=== PATIENT | female | born 1995 | race Caucasian/White ===

== ENCOUNTER 2021-06-27 21:11 | Inpatient (IN) | payer OTHER ==
[~2021-06-27] VITALS: Ht 167.6 cm; Wt 83.0 kg
[~2021-06-27 21:11] MED LIST: FOLIC ACID1 MG PO; IRON325 MG PO; PRENATAL TABLE1 EAC1 PO
== END 2021-07-02 09:55 | disposition home or self-care (01) | DRG 805 ==
LOC: OBS/DEL 21:11 → LDR 06-28 10:46 → OB/GYN 06-28 10:46
PROVIDERS: ADMIT Specialist; ATTEND Specialist
PROC: 4A1HXCZ Monitoring of Products of Conception, Cardiac Rate, External Approach (ICD-10-PCS; 2021-06-28)
PROC: BY4CZZZ Ultrasonography of Second Trimester, Single Fetus (ICD-10-PCS; 2021-06-30)
PROC: 10E0XZZ Delivery of Products of Conception, External Approach (ICD-10-PCS; principal; 2021-07-01)
PROC: 3E0DXGC Introduction of Other Therapeutic Substance into Mouth and Pharynx, External Approach (ICD-10-PCS; 2021-07-01)
PROC: 3E0P7VZ Introduction of Hormone into Female Reproductive, Via Natural or Artificial Opening (ICD-10-PCS; 2021-07-01)
DX: O36.4XX0 Maternal care for intrauterine death, not applicable or unspecified (principal); O60.12X0 Preterm labor second trimester with preterm delivery second trimester, not applicable or unspecified; Z37.1 Single stillbirth; O41.1220 Chorioamnionitis, second trimester, not applicable or unspecified; O42.012 Preterm premature rupture of membranes, onset of labor within 24 hours of rupture, second trimester; O35.0XX0 Maternal care for (suspected) central nervous system malformation in fetus, not applicable or unspecified; O35.3XX0 Maternal care for (suspected) damage to fetus from viral disease in mother, not applicable or unspecified; Z20.822 Contact with and (suspected) exposure to COVID-19; Z3A.22 22 weeks gestation of pregnancy; O34.211 Maternal care for low transverse scar from previous cesarean delivery

== ENCOUNTER 2021-12-18 09:43 | Outpatient (CLI) | payer OTHER | END 2021-12-18 11:33 | disposition home or self-care (01) | LOC: PRENATAL 09:43 | PROVIDERS: ATTEND Obstetrics & Gynecology Maternal & Fetal Medicine | DX: O36.80X0 Pregnancy with inconclusive fetal viability, not applicable or unspecified (principal); Z36.0 Encounter for antenatal screening for chromosomal anomalies; O34.219 Maternal care for unspecified type scar from previous cesarean delivery; O14.90 Unspecified pre-eclampsia, unspecified trimester; Z3A.13 13 weeks gestation of pregnancy ==

== ENCOUNTER 2022-02-05 15:48 | Outpatient (CLI) | payer OTHER | END 2022-02-05 16:57 | disposition home or self-care (01) | LOC: PRENATAL 15:48 | PROVIDERS: ATTEND Obstetrics & Gynecology Maternal & Fetal Medicine | DX: O35.0XX0 Maternal care for (suspected) central nervous system malformation in fetus, not applicable or unspecified (principal); O35.3XX0 Maternal care for (suspected) damage to fetus from viral disease in mother, not applicable or unspecified; O34.219 Maternal care for unspecified type scar from previous cesarean delivery; O14.90 Unspecified pre-eclampsia, unspecified trimester; O42.90 Premature rupture of membranes, unspecified as to length of time between rupture and onset of labor, unspecified weeks of gestation; Z14.8 Genetic carrier of other disease; Z3A.20 20 weeks gestation of pregnancy ==

== ENCOUNTER 2022-04-25 14:07 | Outpatient (CLI) | payer OTHER | END 2022-04-26 08:00 | disposition home or self-care (01) | LOC: OBS/DEL 14:07 → PRENATAL 04-30 15:30 | PROVIDERS: ATTEND Obstetrics & Gynecology | DX: O26.893 Other specified pregnancy related conditions, third trimester (principal); Z3A.31 31 weeks gestation of pregnancy; N93.0 Postcoital and contact bleeding ==

== ENCOUNTER 2022-04-30 15:08 | Outpatient (CLI) | payer OTHER | END 2022-04-30 15:42 | disposition home or self-care (01) | LOC: PRENATAL 15:08 | PROVIDERS: ATTEND Obstetrics & Gynecology Maternal & Fetal Medicine | DX: O26.849 Uterine size-date discrepancy, unspecified trimester (principal); O36.8991 Maternal care for other specified fetal problems, unspecified trimester, fetus 1; O14.90 Unspecified pre-eclampsia, unspecified trimester; Z3A.32 32 weeks gestation of pregnancy ==

== ENCOUNTER 2022-06-10 10:30 | Inpatient (IN) | payer OTHER ==
[~2022-06-10] VITALS: Ht 167.6 cm; Wt 3.2 kg
[2022-06-10] MEDS ORDERED: CHILDREN'S ASPI81 MG PO (13:24)
[2022-06-15] MEDS ORDERED: ASA-BUTALB-CAF1 EACH PO (16:44)
[2022-06-15] MEDS ORDERED: PRENATABS RX T1 EACH PO (16:44)
== END 2022-06-17 14:21 | disposition home or self-care (01) | DRG 785 ==
LOC: OB/GYN 06-15 10:30 → LDR 06-15 15:35 → O/R 06-15 17:11 → OB/GYN 06-15 20:05
PROVIDERS: ADMIT Obstetrics & Gynecology; ATTEND Obstetrics & Gynecology
PROC: 4A1HXCZ Monitoring of Products of Conception, Cardiac Rate, External Approach (ICD-10-PCS; 2022-06-15)
PROC: 0UB70ZZ Excision of Bilateral Fallopian Tubes, Open Approach (ICD-10-PCS; 2022-06-15)
PROC: 10D00Z1 Extraction of Products of Conception, Low, Open Approach (ICD-10-PCS; principal; 2022-06-15 17:00)
DX: O34.211 Maternal care for low transverse scar from previous cesarean delivery (principal); Z3A.39 39 weeks gestation of pregnancy; Z30.2 Encounter for sterilization; Z37.0 Single live birth; Z20.822 Contact with and (suspected) exposure to COVID-19

== ENCOUNTER 2023-01-04 16:14 | Emergency (ER) | payer OTHER ==
[~2023-01-04] VITALS: Ht 162.6 cm; Wt 91.6 kg
[~2023-01-04 16:14] MED LIST changes: +ASA-BUTALB-CAF1 EACH PO; +CHILDREN'S ASPI81 MG PO; +PRENATABS RX T1 EACH PO
== END 2023-01-04 18:24 | disposition home or self-care (01) ==
LOC: ER 16:14
DX: J03.90 Acute tonsillitis, unspecified (principal)

== ENCOUNTER → 2023-01-08 | Emergency (ER) | payer OTHER | END | disposition left against medical advice (07) | LOC: EMR PED 12:25 | DX: Z53.21 Procedure and treatment not carried out due to patient leaving prior to being seen by health care provider (principal) ==

== ENCOUNTER 2023-04-25 08:21 | Emergency (ER) | payer OTHER ==
[~2023-04-25] VITALS: Ht 167.6 cm; Wt 81.6 kg
[2023-04-25] MEDS ORDERED: FAMCICLOVIR500 MG PO (09:37)
[2023-04-25] MEDS ORDERED: ACYCLOVIR15 GM TD (09:37)
== END 2023-04-25 10:58 | disposition home or self-care (01) ==
LOC: ER 08:22
DX: B02.9 Zoster without complications (principal)

== ENCOUNTER 2023-06-03 10:31 | Emergency (ER) | payer OTHER ==
[~2023-06-03] VITALS: Ht 170.2 cm; Wt 83.9 kg
[~2023-06-03 10:31] MED LIST changes: +ACYCLOVIR15 GM TD; +FAMCICLOVIR500 MG PO
[2023-06-03 11:54] LABS: HEMATOCRIT 38.3 % (36.0-45.00); HEMOGLOBIN 12.4 g/dL (12.0-15.00); MEAN CELL VOLUME 76.5 fL (80.00-100.00); MEAN CORPUSCULAR HEMOGLOBIN 24.7 pg (27.00-32.0); MEAN CORPUSCULAR HGB CONC 32.3 g/dl (32.0-36.0); PLATELET COUNT 339 K/uL (150-450); RED BLOOD COUNT 5.01 M/uL (4.00-6.00); RED CELL DISTRIBUTION WIDTH 14.7 % (11.5-14.5)
[2023-06-03] MEDS ORDERED: ZITHROMAX500 MG PO (14:21)
== END 2023-06-03 14:32 | disposition home or self-care (01) ==
LOC: ER 10:33
PROVIDERS: Emergency Medicine
DX: J03.90 Acute tonsillitis, unspecified (principal); Z20.822 Contact with and (suspected) exposure to COVID-19

== ENCOUNTER 2023-07-05 12:58 | Emergency (ER) | payer OTHER ==
[~2023-07-05] VITALS: Ht 167.6 cm; Wt 81.6 kg
[~2023-07-05 12:58] MED LIST changes: +ZITHROMAX500 MG PO
[2023-07-05 15:07] LABS: HEMATOCRIT 35.9 % (36.0-45.00); HEMOGLOBIN 11.8 g/dL (12.0-15.00); MEAN CELL VOLUME 77.7 fL (80.00-100.00); MEAN CORPUSCULAR HEMOGLOBIN 25.4 pg (27.00-32.0); MEAN CORPUSCULAR HGB CONC 32.8 g/dl (32.0-36.0); PLATELET COUNT 393 K/uL (150-450); RED BLOOD COUNT 4.63 M/uL (4.00-6.00); RED CELL DISTRIBUTION WIDTH 14.8 % (11.5-14.5)
== END 2023-07-05 16:50 | disposition home or self-care (01) ==
LOC: ER 12:59
PROVIDERS: Emergency Medicine
DX: B34.9 Viral infection, unspecified (principal); Z20.822 Contact with and (suspected) exposure to COVID-19

== ENCOUNTER 2024-01-23 18:14 | Emergency (ER) | payer OTHER ==
[~2024-01-23] VITALS: Ht 167.6 cm; Wt 81.6 kg
[2024-01-23] MEDS ORDERED: CEFTRIAXONE SODIUM 2,000 MG VIAL IM ONE (19:00)
[2024-01-23] MEDS ORDERED: ORPHENADRINE CITRATE 30 MG/ML AMPUL IM ONE (19:00)
[2024-01-23] MEDS ORDERED: KETOROLAC TROMETHAMINE 60 MG VIAL IM ONE ×2 (19:00→19:53)
[2024-01-23] MEDS ORDERED: CEFTRIAXONE SODIUM 2,000 MG VIAL ONE (19:53)
[2024-01-23] MEDS ORDERED: ORPHENADRINE CITRATE 30 MG/ML AMPUL ONE (19:53)
[2024-01-23 20:20] LABS: HEMATOCRIT 36.6 % (36.0-45.00); MEAN CELL VOLUME 78.6 fL (80.00-100.00); MEAN CORPUSCULAR HEMOGLOBIN 25.8 pg (27.00-32.0); MEAN CORPUSCULAR HGB CONC 32.8 g/dl (32.0-36.0); PLATELET COUNT 331 K/uL (150-450); RED BLOOD COUNT 4.66 M/uL (4.00-6.00)
[2024-01-23 20:58] LABS: URINE APPEARANCE Cloudy; URINE BILIRRUBIN Negative (NEGATIVE); URINE BLOOD Negative; URINE COLOR Yellow; URINE GLUCOSE Negative (NEGATIVE); URINE KETONE Negative (NEGATIVE); URINE LEUKOCYTE Small; URINE NITRATE Negative; URINE PROTEIN Negative (NEGATIVE)
[2024-01-23 21:03] LABS: URINE BACTERIA 613.5 uL (0.0-1933); URINE EPITHELIAL CELLS 119.9 uL (0.0-38.8); URINE RBC 6.8 uL (0.0-20.8); URINE WBC 41.2 uL (0.0-23.2)
[2024-01-23] MEDS ORDERED: KETO10TA2 PO (21:13)
[2024-01-23] MEDS ORDERED: PEPCID AC20 MG PO (21:13)
[2024-01-23] MEDS ORDERED: NORFLEX100MG PO (21:13)
== END 2024-01-23 21:26 | disposition home or self-care (01) ==
LOC: ER 18:16
PROVIDERS: General Practice
DX: M51.26 Other intervertebral disc displacement, lumbar region (principal); J02.9 Acute pharyngitis, unspecified; R09.81 Nasal congestion; Z20.822 Contact with and (suspected) exposure to COVID-19

== ENCOUNTER 2024-03-27 09:52 | Emergency (ER) | payer OTHER ==
[~2024-03-27] VITALS: Ht 167.6 cm; Wt 81.6 kg
[~2024-03-27 09:52] MED LIST changes: +KETO10TA2 PO; +NORFLEX100MG PO; +PEPCID AC20 MG PO
[2024-03-27 12:09] LABS: HEMATOCRIT 38.4 % (36.0-45.00); HEMOGLOBIN 12.6 g/dL (12.0-15.00); MEAN CORPUSCULAR HEMOGLOBIN 25.6 pg (27.00-32.0); MEAN CORPUSCULAR HGB CONC 32.8 g/dl (32.0-36.0); PLATELET COUNT 335 K/uL (150-450); RED BLOOD COUNT 4.93 M/uL (4.00-6.00); RED CELL DISTRIBUTION WIDTH 14.8 % (11.5-14.5)
[2024-03-27 12:30] LABS: CALCIUM 9.2 mg/dL (8.5-10.1); CREATININE SERUM 0.56 mg/dL (0.55-1.02); GFR 126.26; POTASSIUM 4.79 mEq/L (3.5-5.1)
== END 2024-03-27 13:47 | disposition home or self-care (01) ==
LOC: ER 09:54
PROVIDERS: General Practice
DX: R53.81 Other malaise (principal); R00.2 Palpitations

== ENCOUNTER 2024-06-28 09:07 | Emergency (ER) | payer OTHER ==
[~2024-06-28] VITALS: Ht 160 cm; Wt 81.6 kg
[2024-06-28 11:19] LABS: HEMATOCRIT 38.6 % (36.0-45.00); HEMOGLOBIN 12.8 g/dL (12.0-15.00); MEAN CELL VOLUME 77.2 fL (80.00-100.00); MEAN CORPUSCULAR HEMOGLOBIN 25.5 pg (27.00-32.0); PLATELET COUNT 355 K/uL (150-450); RED BLOOD COUNT 5.01 M/uL (4.00-6.00); RED CELL DISTRIBUTION WIDTH 14.8 % (11.5-14.5)
== END 2024-06-28 13:01 | disposition home or self-care (01) ==
LOC: ER 09:09
PROVIDERS: General Practice
DX: B34.9 Viral infection, unspecified (principal); J02.8 Acute pharyngitis due to other specified organisms; Z20.822 Contact with and (suspected) exposure to COVID-19

== ENCOUNTER 2024-09-19 09:29 | Emergency (ER) | payer OTHER ==
[~2024-09-19] VITALS: Ht 167.6 cm; Wt 86.2 kg
[2024-09-19] MEDS ORDERED: RINGERS SOLUTION,LACTATED 1,000 ML IV STA (10:40)
[2024-09-19] MEDS ORDERED: FAMOtidine 10 MG/ML (4ML VIAL) IV STA (10:41)
[2024-09-19] MEDS ORDERED: ONDANSETRON HCL 2 MG/ML VIAL ONE (10:43)
[2024-09-19] MEDS ORDERED: METOCLOPRAMIDE HCL 5 MG/ML VIAL ONE (10:43)
[2024-09-19] MEDS ORDERED: FAMOTIDINE/PF 20 MG/2 ML VIAL ONE (10:44)
[2024-09-19] MEDS ORDERED: METOCLOPRAMIDE HCL 10 MG in DEXTROSE 5 % IN WATER 50 ML IV ONE (10:45)
[2024-09-19] MEDS ORDERED: ONDANSETRON HCL 2 MG/ML VIAL IV ONE (10:45)
[2024-09-19 11:16] LABS: BASO % 1.1 % (0.1-1.2); EOS # 0.09 (0.04-0.54); EOS % 0.9 % (0.7-7.0); HEMATOCRIT 38.5 % (34.1-44.9); HEMOGLOBIN 12.2 g/dL (11.2-15.7); LYMPH # 3.05 (1.18-3.74); LYMPH % 29.6 % (19.3-53.1); MEAN CORPUSCULAR HEMOGLOBIN 24.4 pg (25.6-32.2); MONO # 0.69 (0.24-0.82); MONO % 6.7 % (4.7-12.5); NEUT # 6.33 (1.56-6.13); NEUT % 61.4 % (34.0-71.1); PLATELET COUNT 382 K/uL (163-369); RED BLOOD COUNT 5.01 M/uL (3.93-5.22); RED CELL DISTRIBUTION WIDTH 14.5 % (11.6-14.4)
[2024-09-19 11:35] LABS: ALBUMIN 3.7 gm/dL (3.4-5.0); ALKALINE PHOSPHATASE 81 U/L (50-136); ALT/SGPT 15 U/L (12-78); ANION GAP 8 (10.0-20.0); AST/SGOT 9 U/L (15-37); BILIRUBIN TOTAL 0.35 mg/dL (0.3-1.2); BILIRUBIN,CONJUGATED < 0.10 mg/dL (0.0-0.2); BILIRUBIN,UNCONJUGATED 0.25 mg/dL (0.0-0.6); BLOOD UREA NITROGEN 9 mg/dL (7-18); BUN CREA RATIO 16 (7.0-25.0); CALCIUM 8.7 mg/dL (8.5-10.1); CARBON DIOXIDE 27 mEq/L (21-32); CHLORIDE 108 mmol/L (98-107); CREATININE SERUM 0.56 mg/dL (0.55-1.02); GFR 126.26; GLUCOSE FASTING 89 mg/dL (65-100); OSMOLALITY SERUM 276 MOSM/KG (275-295); POTASSIUM 4.36 mEq/L (3.5-5.1); SODIUM 139 mmol/L (136-145)
== END 2024-09-19 16:42 | disposition home or self-care (01) ==
LOC: ER 09:40
PROVIDERS: General Practice
DX: K29.70 Gastritis, unspecified, without bleeding (principal); R10.9 Unspecified abdominal pain

== ENCOUNTER 2025-01-08 16:56 | Emergency (ER) | payer OTHER ==
[~2025-01-08] VITALS: Ht 167.6 cm; Wt 83.9 kg
[2025-01-08] MEDS ORDERED: KETOROLAC TROMETHAMINE 30 MG VIAL ONE (17:53)
[2025-01-08] MEDS ORDERED: KETOROLAC TROMETHAMINE 30 MG VIAL IM ONE (18:00)
[2025-01-08] MEDS ORDERED: IBUPROFEN800 MG PO (22:11)
== END 2025-01-08 22:16 | disposition home or self-care (01) ==
LOC: ER 16:56
DX: S93.401A Sprain of unspecified ligament of right ankle, initial encounter (principal); W18.39XA Other fall on same level, initial encounter; Y93.89 Activity, other specified; Y92.89 Other specified places as the place of occurrence of the external cause; Y99.9 Unspecified external cause status

== ENCOUNTER 2025-03-06 20:48 | Emergency (ER) | payer OTHER ==
[~2025-03-06] VITALS: Ht 167.6 cm; Wt 81.6 kg
[~2025-03-06 20:48] MED LIST changes: +IBUPROFEN800 MG PO
[2025-03-06] MEDS ORDERED: METHYLPREDNISOLONE SOD SUCC 125 MG VIAL IV STA (21:24)
[2025-03-06] MEDS ORDERED: CEFTRIAXONE SODIUM 2,000 MG VIAL IV STA (21:24)
[2025-03-06] MEDS ORDERED: CEFTRIAXONE SODIUM 2,000 MG VIAL ONE (21:45)
[2025-03-06] MEDS ORDERED: METHYLPREDNISOLONE SOD SUCC 40 MG VIAL ONE (21:45)
[2025-03-06] MEDS ORDERED: WATER FOR INJ.,BACTERIOSTATIC 30 ML VIAL IJ ONE (21:56)
[2025-03-06] MEDS ORDERED: METHYLPREDNISOLONE SOD SUCC 125 MG VIAL ONE (23:09)
[2025-03-06] MEDS ORDERED: CEFTRIAXONE SODIUM 1,000 MG VIAL ONE (23:25)
[2025-03-07] MEDS ORDERED: AMOX-CLAV 875-1 EACH PO (00:33)
== END 2025-03-07 00:43 | disposition home or self-care (01) ==
LOC: ER 20:48
DX: J03.90 Acute tonsillitis, unspecified (principal)